=== PATIENT | male | born 1935 | race Two or more races ===

== ENCOUNTER 2023-11-17 14:36 | Emergency (ER) | payer OTHER ==
[~2023-11-17] VITALS: Ht 172.7 cm; Wt 63.5 kg
[2023-11-17] MEDS ORDERED: TETANUS DIPHTHERIA TOX. ADSOR 5 ML VIAL IM ONE (16:26)
[2023-11-17] MEDS ORDERED: TETANUS & DIPHTHERIA TOX,ADULT 0.5 ML VIAL IM ONE (16:30)
[2023-11-17] MEDS ORDERED: LIDOCAINE HCL 1% 10ML VIAL ONE (18:49)
[2023-11-17] MEDS ORDERED: BACITRACIN-NEOMYCIN-POLYMYXIN 0.9 GM PACKET TOP ONE (19:15)
== END 2023-11-17 19:21 | disposition home or self-care (01) ==
LOC: ER 14:36
DX: S61.412A Laceration without foreign body of left hand, initial encounter (principal); S69.90XA Unspecified injury of unspecified wrist, hand and finger(s), initial encounter; S09.90XA Unspecified injury of head, initial encounter; W19.XXXA Unspecified fall, initial encounter; Y93.89 Activity, other specified; Y92.89 Other specified places as the place of occurrence of the external cause; Y99.8 Other external cause status
CPT/HCPCS: 12002; 29125; 29130; 70450; 73130; 90471; 90714; 96372; 99284; J1670

== ENCOUNTER → 2024-05-30 | Emergency (ER) | payer OTHER ==
[~2024-05-30] VITALS: Ht 172.7 cm; Wt 60.8 kg
[~2024-05-30] MED LIST: 0.9 % SODIUM CHLORIDE 1,000 ML IV ONE; ASPIRIN 325 MG TABLET PO ONE; LABETALOL HCL 100 MG/20 ML ML IV ONE; LABETALOL HCL 100 MG/20 ML ML ONE; NIFEDIPINE 10 MG CAPSULE PO ONE; TAMSULOSIN HCL 0.4 MG CAP PO ONE
[2024-05-30 17:36] LABS: HEMATOCRIT 42.5 % (39.0-48.0); HEMOGLOBIN 13.9 g/dL (13-16.00); MEAN CELL VOLUME 88.7 fL (80.0-100.00); MEAN CORPUSCULAR HGB CONC 32.7 g/dl (32.0-36.0); PLATELET COUNT 216 K/uL (150-450); RED BLOOD COUNT 4.79 M/uL (4.00-6.00); RED CELL DISTRIBUTION WIDTH 14.1 % (11.5-14.5)
[2024-05-30 17:44] LABS: URINE APPEARANCE Clear; URINE BILIRRUBIN Negative (NEGATIVE); URINE BLOOD Negative; URINE COLOR Yellow; URINE GLUCOSE Negative (NEGATIVE); URINE KETONE Negative (NEGATIVE); URINE LEUKOCYTE Negative; URINE NITRATE Negative; URINE UROBILINOGEN 0.2 E.U./dl
[2024-05-30 17:45] LABS: URINE BACTERIA 6.1 uL (0.0-1933); URINE RBC 8.5 uL (0.0-20.8)
[2024-05-30 17:47] LABS: URINE CAST 0.29 uL (0.0-1.40); URINE PROTEIN 100 (NEGATIVE)
[2024-05-30 18:02] LABS: INR 0.98; PARTIAL THROMBOPLASTIN TIME 26.1 SECONDS (22.0-34.0); PROTHROMBIN TIME 10.7 SECONDS (9.0-11.5)
[2024-05-30 18:09] LABS: ALBUMIN 3.6 gm/dL (3.4-5.0); BILIRUBIN TOTAL 0.46 mg/dL (0.3-1.2); CALCIUM 9.2 mg/dL (8.5-10.1); CREATININE SERUM 0.9 mg/dL (0.70-1.30); GFR 79.45; GLOBULINA 3.2 G/DL (2.4-3.5); POTASSIUM 4.39 mEq/L (3.5-5.1); TOTAL PROTEIN 6.8 gm/dL (6.4-8.2)
[2024-05-30 18:41] LABS: ABG PH 7.438 (7.35-7.45); ABG PO2 94.1 mmHg (80-100); ABG pCO2 38.4 mmHg (35-45); BASE EXCESS 1.3 mmol/l; BICARBONATE 25.4 mmol/l (23-25); SaO2 97.6 %; Tco2 26.5 mmol/l
[2024-05-30 19:00] LABS: allen test SATISFACTORY; o2 21 %; puncture site RADIAL RIGHT
== END | disposition home or self-care (01) ==
LOC: ER 16:17
PROVIDERS: General Practice
DX: I10 Essential (primary) hypertension (principal); R07.89 Other chest pain
CPT/HCPCS: 70450; 71045; 96365; 99283; J3490